=== PATIENT | female | born 1955 | race Hispanic/Latino ===

== ENCOUNTER 2016-09-19 11:45 | Day surgery (SDC) | payer OTHER ==
[2016-09-12 12:34] VITALS: BMI 25.8
[2016-09-19] MEDS ORDERED: Lactated Ringer's 1,000 ML IV ONE ×2 (13:21)
[2016-09-19] MEDS ORDERED: Propofol 10 mg/ml Inj (20 ML) ONE ×2 (14:15→14:24)
[2016-09-19] MEDS: ceFAZolin IV 1 gm in Dextrose 1 GM/50 ML BAG IVPB ONE ×2 (14:15→14:34)
[2016-09-19] MEDS ORDERED: Midazolam 2 MG/2 ML VIAL ONE (14:15)
[2016-09-19] MEDS: Lidocaine 1% Inj (20ml) ONE ×2 (14:30→14:33)
[2016-09-19] MEDS: Bupivacaine HCl 0.25% PF (10 ml) Inj ONE ×2 (14:30→14:33)
[2016-09-19] MEDS ORDERED: Bacitracin Ointment 30 GM TUBE ONE (14:54)
[2016-09-19] MEDS ORDERED: HYDROmorphone 0.5 mg/0.5 ml ISec IVP PRN (15:12)
[2016-09-19] MEDS ORDERED: Oxycodone/Acetaminophen 5/325 mg Tab PO PRN (15:26)
--- NOTE | 2016-09-19 15:33 | OP ---
PROCEDURE DATE: 09/19/2016 PREOPERATIVE DIAGNOSIS: Mass of the right elbow. POSTOPERATIVE DIAGNOSIS: Mass of the right elbow. PROCEDURE PERFORMED: Wide and deep radical resection mass of the right elbow with adjacent tissue tr ansfer closure. SURGEON: Dino Leonardo MD ANESTHESIA: Local sedation. ESTIMATED BLOOD LOSS: 30 mL. POSTOPERATIVE CONDITION: Stable. INDICATIONS FOR SURGERY: This is a 61-year-old female with a painful enlarging mass of her right elb ow who will now undergo a wide and deep excision. It measured approximately 5 x 3 cm in size. PROCEDURE: The patient taken to the operating room, placed in the prone position. IV sedation was a dministered and the right arm, elbow and forearm were prepped and draped. A generous elliptical inci elmo was made surrounding the mass. It was dissected free down into the joint capsule and cavity and completely dissected free and removed. There was a fair amount of bleeding that was controlled with the Bovie. The wound was irrigated with copious amounts of saline solution. A greater than 30 squa re cm adjacent tissue transfer closure was performed by widely mobilizing an underlying tissue and us ing multiple layers of heavy Monocryl, subcuticular Monocryl, and skin clips. The patient tolerated the procedure well, returned to recovery room in stable condition. Dino Leonardo MD cc: [id number] TT: 09/19/2016 15:32:30 sn
[2016-09-19 16:54] VITALS: RESP 16
[2016-09-19 16:58] VITALS: TEMP 97.5
[2016-09-19 17:02] VITALS: O2SAT 98
[2016-09-19 17:03] VITALS: BP 129/78; PULSE 69
== END 2016-09-19 17:10 | disposition home or self-care (01) ==
LOC: C.SDS 11:45
PROVIDERS: ATTEND Surgery
DX: M67.421 Ganglion, right elbow (principal); R22.31 Localized swelling, mass and lump, right upper limb; M65.821 Other synovitis and tenosynovitis, right upper arm
CPT/HCPCS: 24077; 88307; J0690; J2250; J2704; J3010; J7120

== ENCOUNTER 2016-09-23 19:51 | Inpatient (IN) | payer MEDICAID, OTHER ==
[2016-09-23 19:52] VITALS: BMI 25.8
--- NOTE | 2016-09-23 20:15 | C.PDOC ---
History Of Present Illness Patient presents to the ED seeking detox. Patient notes taking Xanax 6 mg daily with the last dose taken just prior to arrival at 7pm. Patient denies suicidal or homicidal ideations. Time Seen by Provider: 09/23/16 20:15 Chief Complaint (Nursing): Substance Abuse History Per: Patient History/Exam Limitations: no limitations Current Symptoms Are (Timing): Still Present Suicide/Self Injury Attempted (Context): None Modifying Factor(s): None Severity: None Pain Scale Rating Of: 0 Associated Symptoms: Anxiety. denies: Suicidal Thoughts, Suicidal Plan Involuntary Hold By: None Recent travel outside of the [place]: No Additional History Per: Family Past Medical History Reviewed: Historical Data, Nursing Documentation, Vital Signs Vital Signs: Last Vital Signs Temp 97.9 F 09/23/16 19:53 Pulse 89 09/23/16 19:53 Resp 20 09/23/16 19:53 BP 121/78 09/23/16 19:53 Pulse Ox 100 09/23/16 20:39 - Medical History PMH: Anxiety, Asthma, HTN Family History: States: Unknown Family Hx - Social History Hx Alcohol Use: No Hx Substance Use: Yes - Immunization History Hx Tetanus Toxoid Vaccination: No Hx Influenza Vaccination: Yes Hx Pneumococcal Vaccination: No Review Of Systems Constitutional: Negative for: Fever, Chills, Sweats Cardiovascular: Negative for: Chest Pain, Palpitations Respiratory: Negative for: Cough, Shortness of Breath Gastrointestinal: Negative for: Nausea, Vomiting, Abdominal Pain, Diarrhea Psych: Positive for: Anxiety. Negative for: Suicidal ideation Physical Exam - Physical Exam Appears: Non-toxic, No Acute Distress Skin: Warm, Dry Head: Atraumatic Eye(s): bilateral: Normal Inspection Oral Mucosa: Moist Neck: Supple Chest: Symmetrical, No Deformity Cardiovascular: Rhythm Regular Respiratory: No Rales, No Rhonchi, No Stridor, No Wheezing Gastrointestinal/Abdominal: Soft, No Tenderness, No Distention, No Guarding, No Rebound Back: Normal Inspection Extremity: Normal ROM, No Tenderness Extremity: Bilateral: Atraumatic Neurological/Psych: Oriented x3, Normal Speech, Normal Cognition Gait: Steady ED Course And Treatment - Laboratory Results Result Diagrams: 09/23/16 04:52 09/23/16 04:52 O2 Sat by Pulse Oximetry: 100 Pulse Ox Interpretation: Normal Disposition Discussed With : Domingo Herzog (') Comment: accepted the pt on his service and took over the care at 10PM Doctor Will See Patient In The: Hospital Counseled Patient/Family Regarding: Studies Performed, Diagnosis - Disposition Disposition: HOSPITALIZED Disposition Time: 20:15 Condition: FAIR - POA Present On Arrival: None - Clinical Impression Clinical Impression: Drug dependence, Benzodiazepine abuse - Scribe Statement The provider has reviewed the documentation as recorded by the Scribe Provider Attestation: Heather Mark All medical record entries made by the Scribe were at my direction and personally dictated by me. I have reviewed the chart and agree that the record accurately reflects my personal performance of the history, physical exam, medical decision making, and the department course for this patient. I have also personally directed, reviewed, and agree with the discharge instructions and disposition. Decision To Admit - Pt Status Changed To: Hospital Disposition Of: Inpatient - Admit Certification Admit to Inpatient:: After my assessment, the patient will require hospitalization for at least two midnights. This is because of the severity of symptoms shown, intensity of services needed, and/or the medical risk in this patient being treated as an outpatient. - InPatient: Physician Admission Certification: I certify that this patient requires 2 or more midnights of care for the following reason:: After my assessment, the patient will require hospitalization for at least two midnights. This is because of the severity of symptoms shown, intensity of services needed, and/or the medical risk in this patient being treated as an outpatient. - . Bed Request Type: Detox Admitting Physician: Domingo Herzog Patient Diagnosis: Drug dependence, Benzodiazepine abuse
[2016-09-23 20:32] LABS: BASO # 0.1 K/uL (0.0-0.2); BASO % 0.7 % (0.0-2.0); EOS # 0.5 K/uL (0.0-0.7); EOS % 4.1 % (0.0-4.0); LYMPH # 3.1 K/uL (1.0-4.3); LYMPH % 27.1 % (20.0-40.0); MEAN CELL VOLUME 94.1 fL (81.0-99.0); MEAN PLATELET VOLUME 7.3 fL (7.2-11.7); MONO # 1.2 K/uL (0.0-0.8); MONO % 10.5 % (0.0-10.0); RED CELL DISTRIBUTION WIDTH 13.8 % (11.5-14.5); WHITE BLOOD COUNT 11.4 K/uL (4.8-10.8)
[2016-09-23 20:45] LABS: RBC URINE 2 /hpf (0-3); URINE BILIRUBIN NEGATIVE (NEGATIVE); URINE BLOOD 1+ (NEGATIVE); URINE COLOR Yellow (YELLOW); URINE GLUCOSE (UA) NORMAL (Normal); URINE KETONE NEGATIVE (NEGATIVE); URINE LEUKOCYTE ESTERASE NEG Leu/uL (Negative); URINE PROTEIN NEGATIVE (NEGATIVE); URINE UROBILINOGEN NORMAL mg/dL (0.2-1.0); WBC URINE 8 /hpf (0-5)
[2016-09-23 21:16] LABS: CHLORIDE 97 mmol/L (98-107); POTASSIUM 3.9 mmol/L (3.6-5.2); SODIUM 136 mmol/L (132-148)
[2016-09-23 21:18] LABS: ALB/GLOB RATIO 1.4 (1.0-2.1); AST/SGOT 22 U/L (14-36); BILIRUBIN,TOTAL 0.6 mg/dL (0.2-1.3); CARBON DIOXIDE 27 mmol/L (22-30); GFR AFRICAN-AMERICAN > 60; TOTAL PROTEIN 7.7 g/dL (6.3-8.3)
[2016-09-23 21:19] LABS: ALCOHOL SERUM < 10 mg/dl (0-10); ALKALINE PHOSPHATASE 76 U/L (38-126); ALT/SGPT 20 U/L (9-52); BLOOD UREA NITROGEN 12 mg/dL (7-17); CALCIUM 8.4 mg/dl (8.6-10.4); GLUCOSE,RANDOM 83 mg/dL (65-105)
[2016-09-24] MEDS ORDERED: Influenza Virus Vaccine 45 mcg/0.5 ml Syr IM ONE (02:09)
--- NOTE | 2016-09-24 14:44 | PCM.PSYCH ---
Initial Psychiatric Evaluation - Initial Psychiatric Evaluation Type of Admission: Voluntary Legal Status: Capacity Chief Complaint (in patient's own words): I need treatment for my benzoes addiction History of Present Illness and Precipitating Events: Patient is a 61 years old, single, unemployed, on SSI, female with no previous psychiatric history was admitted to detox for the treatment of withdrawing from anxiolytics. Reported using Xanax which is her drug of choice. Reported started using Xanax about 8 years ago, was using 2-3 sticks of Xanax daily. Last use reported yesterday around 6 PM. Longest period of abstinence about 2 years 2009 to 2010. Reported history of one previous detox but no rehabs. Cannabis: Started at the age of 17 years, increased gradually, was using cannabis every day hold a. Last use reported 2 days ago. Opiates: Patient has history of using Vicodin in the past and for last 6 months reported using hydrocodone, half to 1 tablet daily. Last use reported yesterday. Denied use of alcohol or cocaine. Patient was born in [place], has 12th grade of education. Not working since 2001, on [employer]. Patient never and has no children, lives with her next of kin. Her height is 5 feet 7-1/2 inch and weight is 168 pounds. Patient smokes one and a half pack of cigarettes daily, requesting nicotine patch. Current Medications: Active Medications Generic Name Dose Route Start Last Admin Trade Name Freq PRN Reason Stop Dose Admin Amlodipine Besylate 10 mg 09/24/16 10:00 09/24/16 12:11 Norvasc PO 10 mg DAILY DRAE Administration Clonidine HCl 0.1 mg 09/24/16 09:48 Catapres PO Q8 PRN COWS Score More or Equal to 5 Gabapentin 300 mg 09/24/16 10:00 09/24/16 10:11 Neurontin PO 300 mg BID DREA Administration Hydroxyzine HCl 25 mg 09/24/16 09:47 Atarax PO Q6 PRN Anxiety Loperamide HCl 2 mg 09/24/16 09:48 Imodium PO Q8 PRN Diarrhea Lorazepam 1 mg 09/24/16 10:16 Ativan PO Q6 PRN Anxiety Metoprolol Tartrate 100 mg 09/24/16 10:00 09/24/16 12:10 Lopressor PO 100 mg BID DREA Administration Nicotine 1 patch 09/24/16 10:00 09/24/16 10:11 Nicoderm Cq TD 1 patch DAILY DREA Administration Ondansetron HCl 4 mg 09/24/16 09:48 Zofran Tab PO Q8 PRN Nausea/Vomiting Past Psychiatric History - Past Psychiatric History Previous Treatment History: Inpatient Prior Professional Help: Inpatient detox At [facility]: [facility] History of Abuse: None reported History of ETOH/Drug Use: See HPI History of Family Illness: Reported his brother has history of cannabis use Pertinent Medical Hx (Current Medical&Sleep Prob, Allergies): Allergies Allergy/AdvReac Type Severity Reaction Status Date / Time hormone theraphy Allergy Uncoded 09/23/16 20:02 steroids Allergy Uncoded 09/23/16 20:02 Fluticasone Propionate [Flonase Allergy Relief] 15.8 ml NS PRN PRN 06/30/16 Nortriptyline HCl 10 mg PO HS 06/30/16 Albuterol/Ipratropium [Combivent Respimat] 1 puff IH Q6H PRN #0 inhaler Metoprolol Tartrate [Lopressor] 100 mg PO BID tab 07/05/16 amLODIPine [Norvasc] 10 mg PO DAILY tab 07/05/16 Alprazolam [Xanax] 0.5 mg PO Q6 PRN 09/12/16 Black Cohosh 40 mg PO DAILY 09/12/16 Gabapentin [Neurontin] 300 mg PO DAILY 09/12/16 Melatonin 10 mg PO HS 09/12/16 Zolpidem [Ambien] 10 mg PO HS PRN 09/12/16 Ibuprofen [Motrin Tab] 600 mg PO BID 09/23/16 Loratadine [Claritin] 10 mg PO DAILY 09/23/16 traZODone [Desyrel] 100 mg PO HS 09/23/16 Hypertension Asthma Review of Systems - Psychiatric Psychiatric: Other Mental Status Examination - Personal Presentation Personal Presentation: Looks stated age - Affect Affect: Other - Motor Activity Motor Activity: Calm - Reliability in Providing Information Reliability in Providing Information: Fair - Speech Speech: Organized - Mood Mood: Anxious - Formal Thought Process Formal Thought Process: No Impairment - Hallucinations/Delusions Hallucinations: Other (None reported) Delusions: Other - Obsessions/Compulsions Obsessions: None Compulsions: None - Cognitive Functions Orientation: Person, Place, Situation, Time Sensorium: Alert Attention/Concentration: Attentive Abstract Thinking: [place] Estimate of Intelligence: Average Judgement: Intact, as evidence by: Insight regarding need for hospitalization Memory: Recent intact, as evidence by: 3/3 object recall, Remote intact, as evidenced by: Ability to recall historical events - Risk Risk: Withdrawal, Diminished functioning - Strength & Assets Inventory Strength & Assets Inventory: Cooperative - Limitations Limitations: Other DSM 5 DX - DSM 5 DSM 5 Diagnosis: Anxiolytics use disorder severe Cannabis use disorder Opiate use disorder - Recommended/Plan of Treatment Treatment Recommendations and Plan of Treatment: Patient education Supportive therapy Ativan 1 mg every 6 when necessary. Patient has no withdrawal symptoms from Xanax or opiates. Gabapentin 300 mg twice a day Other when necessary medications Nicotine patch Projected ELOS: 4-5 days - Smoking Cessation Smoking Cessation Initiated: Yes
[2016-09-25 06:13] VITALS: RESP 18
[2016-09-25] MEDS: Multiple Vitamins Tab PO SCH (10:57)
--- NOTE | 2016-09-25 14:22 | PCM.PYCHPN ---
Psychiatric Progress Note - Psychiatric Progress Note Patient seen today, length of contact: 18 min Patient Chief Complaint: "I'm withdrawing" Problems Identified/Issues Discussed: The pt is seen, chart reviewed, case discussed with staff. The pt is compliant with medications and reports no side-effects. Pt still complaining of withdrawals with sweats, chills, goosebumps, pyrexia, and stomach cramps. Pt states she does not have an appetite and could not sleep restfully. Symptoms are improving but needs more time to stabilize. Pt had right elbow surgery on Sunday and is to follow up with Dr. Leonardo tomorrow, 09/26. Dr. Leonardo will be contacted for follow up. After care discussed, support and psychoeducation given. Medication Change: Yes (detox changes daily) Medical Record Reviewed: Yes Mental Status Examination - Cognitive Function Orientation: Person, Place, Situation, Time Memory: Impaired Attention: WNL Concentration: WNL Association: WNL Fund of Knowledge: WNL - Mood Mood: Anxious - Affect Affect: Constricted - Speech Speech: Appropriate - Formal Thought Process Formal Thought Process: No Impairment - Suicidal Ideation Suicidal Ideation: No - Homicidal Ideation Homicidal Ideation: No Goal/Treatment Plan - Goal/Treatment Plan Need for Continued Stay: Discharge may exacerbated symptoms, Severe functional impairment Progress Toward Problem(s) and Goals/Treatment Plan: Patient education Supportive therapy Librium 25 mg PO Q4 PRN Librium 25 mg PO Q6 DREA Gabapentin 300 mg twice a day Gabapentin 400 mg PO HS DREA Trazodone 50 mg PO HS PRN Other when necessary medications Nicotine patch No need for methadone or suboxone for now as her COWS is low but benzo wdw sxs are present and risk of seizures. Estimated Date of D/C: 09/28/16 - Smoking Cessation Smoking Cessation Initiated: Yes
[2016-09-26] MEDS: Multiple Vitamins Tab PO SCH (09:06)
--- NOTE | 2016-09-26 14:31 | PCM.PYCHPN ---
Psychiatric Progress Note - Psychiatric Progress Note Patient seen today, length of contact: 16 min Patient Chief Complaint: "I'm still not well" Problems Identified/Issues Discussed: The pt is seen, chart reviewed, case discussed with staff. She is improving but still very somatic and anxious Support given, sx mgt discussed MD used After care discussed Medication Change: Yes (detox changes daily) Medical Record Reviewed: Yes Mental Status Examination - Cognitive Function Orientation: Person, Place, Situation, Time Memory: Impaired Attention: WNL Concentration: WNL Association: WNL Fund of Knowledge: WNL - Mood Mood: Anxious - Affect Affect: Constricted - Speech Speech: Appropriate - Formal Thought Process Formal Thought Process: No Impairment - Suicidal Ideation Suicidal Ideation: No - Homicidal Ideation Homicidal Ideation: No Goal/Treatment Plan - Goal/Treatment Plan Need for Continued Stay: Discharge may exacerbated symptoms, Severe functional impairment Progress Toward Problem(s) and Goals/Treatment Plan: Patient education Supportive therapy Librium 25 mg PO Q4 PRN Librium 25 mg PO Q6 DREA Gabapentin 300 mg twice a day Gabapentin 400 mg PO HS DREA Trazodone 50 mg PO HS PRN Other when necessary medications Nicotine patch No need for methadone or suboxone for now as her COWS is low but benzo wdw sxs are present and risk of seizures. Estimated Date of D/C: 09/28/16
[2016-09-27] MEDS: Multiple Vitamins Tab PO SCH (09:00)
--- NOTE | 2016-09-27 12:07 | PCM.PYCHPN ---
Psychiatric Progress Note - Psychiatric Progress Note Patient seen today, length of contact: 16 min Patient Chief Complaint: "I'm feeling less anxious" Problems Identified/Issues Discussed: The pt is seen, chart reviewed, case discussed with staff. She is improving and reports less anxiety. Support given, sx mgt discussed OK used After care discussed - pt plans to go to [facility] Medication Change: Yes (detox changes daily) Medical Record Reviewed: Yes Mental Status Examination - Cognitive Function Orientation: Person, Place, Situation, Time Memory: Impaired Attention: WNL Concentration: WNL Association: WNL Fund of Knowledge: WNL - Mood Mood: Anxious - Affect Affect: Constricted - Speech Speech: Appropriate - Formal Thought Process Formal Thought Process: No Impairment - Suicidal Ideation Suicidal Ideation: No - Homicidal Ideation Homicidal Ideation: No Goal/Treatment Plan - Goal/Treatment Plan Need for Continued Stay: Discharge may exacerbated symptoms, Severe functional impairment Progress Toward Problem(s) and Goals/Treatment Plan: Patient education Supportive therapy Librium 25 mg PO Q4 PRN Librium 25 mg detox Gabapentin 300 mg twice a day Gabapentin 400 mg PO HS DREA Trazodone 100 mg PO HS PRN Other when necessary medications Nicotine patch No need for methadone or suboxone for now as her COWS is low but benzo wdw sxs are present and risk of seizures. Estimated Date of D/C: 09/28/16 (outpatient [facility])
[2016-09-27] MEDS: Albuterol-Ipratrop 20 mcg/actuation (4 g) INH PRN (14:45)
--- NOTE | 2016-09-28 08:45 | PCM.PYCHDC ---
Mental Status Examination - Mental Status Examination Orientation: Person, Place, Situation, Time Memory: Impaired Mood: Anxious Affect: Constricted Speech: Appropriate Attention: WNL Concentration: Poor Association: WNL Fund of Knowledge: WNL Formal Thought Process: No Impairment Suicidal Ideation: No Current Homicidal Ideation?: No Discharge Summary - Discharge Note Reason for Hospitalization: Benzo detox Consultations:: List each consultation separately and include: 1. Reason for request. 2. Findings. 3. Follow-up Consultations: None Summary of Hospital Course include:: 1. Description of specific treatment plan utilized for patients during their course of treatmen. 2. Summarize the time- course for resolution of acute symptoms and/or regressed behaviors. 3. Describe issues identified and worked on during hospitalization. 4. Describe medication utilized. 5. Describe medical problems identified and treated. 6. Reassessment of suicide risk Summary of Hospital Course: The pt was admitted and started on treatment with psychotherapy, support, psychoeducation and medications. LA and CBT used. The pt attended groups and activities, as well as milieu therapy. All the risks and benefits of medications are discussed and the patient understood and agreed. After care discussed with the patient. She barbara go to [facility] She was anxious and somewhat somatically preoccupied. 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 Stay away from stress, alcohol and drugs. See primary doctor once a year. - Smoking Cessation Smoking Cessation Medication prescribed: No - Antipsychotic Medications Pt discharged on 2 or more routine antipsychotic medications: No
[2016-09-28] MEDS: Albuterol-Ipratrop 20 mcg/actuation (4 g) INH PRN (09:45)
[2016-09-28] MEDS: Multiple Vitamins Tab PO SCH (09:46)
[2016-09-28 10:57] VITALS: BP 112/83; PULSE 95; TEMP 98.1; O2SAT 94
== END 2016-09-28 11:10 | disposition home or self-care (01) | DRG 745 ==
LOC: C.ER 19:51 → C.9E 22:07 → C.7D 22:24
PROC: HZ2ZZZZ Detoxification Services for Substance Abuse Treatment (ICD-10-PCS; principal; 2016-09-23)
PROC: HZ59ZZZ Individual Psychotherapy for Substance Abuse Treatment, Supportive (ICD-10-PCS; 2016-09-23)
PROC: HZ90ZZZ Pharmacotherapy for Substance Abuse Treatment, Nicotine Replacement (ICD-10-PCS; 2016-09-23)
DX: F13.230 Sedative, hypnotic or anxiolytic dependence with withdrawal, uncomplicated (principal); F11.90 Opioid use, unspecified, uncomplicated; F12.20 Cannabis dependence, uncomplicated; F17.210 Nicotine dependence, cigarettes, uncomplicated; I10 Essential (primary) hypertension; J45.909 Unspecified asthma, uncomplicated; F41.9 Anxiety disorder, unspecified

== ENCOUNTER 2016-12-11 18:02 | Inpatient (IN) | payer MEDICAID, OTHER ==
[2016-12-11 18:02] VITALS: BMI 25.8
--- NOTE | 2016-12-11 19:44 | C.PDOC ---
History Of Present Illness A 61 year old female, whose past medical history includes Anxiety, Asthma, and HTN, presents to emergency department for medical clearance. The patient was medically pre-screened and denies any physical complaints such as fever and chest pain. Time Seen by Provider: 12/11/16 19:21 Chief Complaint (Nursing): Medical Clearance History Per: Patient History/Exam Limitations: no limitations Onset/Duration Of Symptoms: Other Severity: None Past Medical History Vital Signs: Last Vital Signs Temp 98.6 F 12/11/16 22:50 Pulse 76 12/11/16 22:50 Resp 18 12/11/16 22:50 BP 110/69 12/11/16 22:50 Pulse Ox 98 12/11/16 22:50 - Medical History PMH: Anxiety, Asthma, HTN Denies: Diabetes, Hepatitis, Chronic Kidney Disease Surgical History: Tonsillectomy - [facility] Procedures DETOXIFICATION SERVICES FOR SUBSTANCE ABUSE TREATMENT (09/23/16) INDIV PSYCHOTHERAPY FOR SUBSTANCE ABUSE TREATMENT, SUPPORT (09/23/16) PHARMACOTHERAPY FOR SUBSTANCE ABUSE, NICOTINE REPLACE (09/23/16) Family History: States: Unknown Family Hx - Social History Hx Alcohol Use: No Hx Substance Use: Yes - Immunization History Hx Tetanus Toxoid Vaccination: No Hx Influenza Vaccination: Yes Hx Pneumococcal Vaccination: No Review Of Systems Except As Marked, All Systems Reviewed And Found Negative. Constitutional: Negative for: Fever Cardiovascular: Negative for: Chest Pain Physical Exam - Physical Exam Additional Physical Exam Comments: Constitutional: No acute distress. Head: Normocephalic. Atraumatic. Eyes: PERRL. EOMI. ENT: Moist mucous membranes. Neck: Supple. Cardiovascular: Regular rate. Radial pulses 2+ bilaterally. Chest: No tenderness. Respiratory: Clear to auscultation bilaterally. GI: Soft. Nontender. Nondistended. Back: No CVA tenderness. Musculoskeletal: No tenderness or swelling of extremities. Skin: No rash. Neurologic: Alert, no focal deficit. ED Course And Treatment - Laboratory Results Result Diagrams: 12/11/16 19:52 12/11/16 19:52 O2 Sat by Pulse Oximetry: 100 Medical Decision Making Medical Decision Making: Treatment Plan: -- Labs: Alcohol serum, comp metabolic, drug screen -- Urinalysis Disposition - Disposition Disposition: HOSPITALIZED Disposition Time: 21:00 Condition: GOOD - Clinical Impression Clinical Impression: Benzodiazepine abuse - Scribe Statement The provider has reviewed the documentation as recorded by the Scribe Kristy Dorman All medical record entries made by the Scribe were at my direction and personally dictated by me. I have reviewed the chart and agree that the record accurately reflects my personal performance of the history, physical exam, medical decision making, and the department course for this patient. I have also personally directed, reviewed, and agree with the discharge instructions and disposition.
[2016-12-11 19:55] LABS: BASO # 0.1 K/uL (0.0-0.2); BASO % 0.8 % (0.0-2.0); EOS # 0.3 K/uL (0.0-0.7); EOS % 3.2 % (0.0-4.0); HEMATOCRIT 43.3 % (34.0-47.0); LYMPH # 2.7 K/uL (1.0-4.3); LYMPH % 25.2 % (20.0-40.0); MEAN CELL VOLUME 94.9 fL (81.0-99.0); MEAN CORPUSCULAR HEMOGLOBIN 31.9 pg (27.0-31.0); MEAN CORPUSCULAR HGB CONC 33.6 g/dL (33.0-37.0); MEAN PLATELET VOLUME 7.9 fL (7.2-11.7); MONO % 9.1 % (0.0-10.0); RED CELL DISTRIBUTION WIDTH 13.3 % (11.5-14.5); WHITE BLOOD COUNT 10.7 K/uL (4.8-10.8)
[2016-12-11 20:05] LABS: CHLORIDE 101 mmol/L (98-107); POTASSIUM 3.9 mmol/L (3.6-5.2); SODIUM 139 mmol/L (132-148)
[2016-12-11 20:07] LABS: AST/SGOT 26 U/L (14-36); BILIRUBIN,TOTAL 0.7 mg/dL (0.2-1.3); CARBON DIOXIDE 26 mmol/L (22-30); GFR AFRICAN-AMERICAN > 60
[2016-12-11 20:08] LABS: ALB/GLOB RATIO 1.2 (1.0-2.1); ALKALINE PHOSPHATASE 73 U/L (38-126); ALT/SGPT 30 U/L (9-52); BLOOD UREA NITROGEN 7 mg/dL (7-17); CALCIUM 9.4 mg/dl (8.6-10.4); GLUCOSE,RANDOM 83 mg/dL (65-105); TOTAL PROTEIN 7.8 g/dL (6.3-8.3)
[2016-12-11 20:09] LABS: ALCOHOL SERUM < 10 mg/dl (0-10)
[2016-12-11 20:44] LABS: RBC URINE 2 /hpf (0-3); URINE BILIRUBIN NEGATIVE (NEGATIVE); URINE BLOOD 1+ (NEGATIVE); URINE COLOR Yellow (YELLOW); URINE GLUCOSE (UA) NORMAL (Normal); URINE KETONE NEGATIVE (NEGATIVE); URINE LEUKOCYTE ESTERASE NEG Leu/uL (Negative); URINE PROTEIN NEGATIVE (NEGATIVE); URINE UROBILINOGEN NORMAL mg/dL (0.2-1.0); WBC URINE < 1 /hpf (0-5)
--- NOTE | 2016-12-11 22:19 | PCM.BM ---
<Smitha Zavala - Last Filed: 12/11/16 22:18> Treatment Plan Problems - Problems identified on initial assessmt Potential for benzo withdrawal Date Initiated: 12/11/16 Time Initiated: 22:19 Assessment reference: NA Status: Active Priority: 1 Treatment assets and liabiliti Patient Assests: ADL independent, negotiates basic needs, cognitively intact Patient Liabilities: substance abuse - Milieu Protocol Maintain good personal hygiene: daily Encourage regular showers, daily Remind patient to perform daily oral care Conduct patient checks and document Observation sheet: Q15 minutes Maintain personal safety: every shift Educate patient to report safety concerns to staff, every shift Monitor environment for contraband/sharps Medication safety: Monitor for expected outcome, potential side effects: every shift, Assess barriers to learning: every shift, Assess readiness for medication education: every shift <Domingo Herzog - Last Filed: 12/12/16 14:08> - Diagnosis (1) Sedative, hypnotic or anxiolytic use disorder, severe, dependence Status: Acute Interventions: 12/12/16 14:13 Ativan taper (2) Cannabis use disorder, mild, abuse Status: Acute Interventions: 12/12/16 14:13 Psychotherapy (3) Opiate use Status: Acute Interventions: 12/12/16 14:13 Clonidine <Ambar Ellis - Last Filed: 12/13/16 09:04> Family Contact Family involvement: Family/SO is involved Family contact: Patient agrees to contact - Goals for Treatment Patient goals for treatment: Transition from detox to aftercare--undetermined at this point. Discharge/Continuing Care - Education Needs Education Needs: Patient Medication, Patient Diagnosis/Disease Process, Patient Coping Skills, Patient Anger Management skills, Patient Placement options, Patient Community resources - Discharge Discharge Criteria: Free of agitation, Normal sleep pattern, No longer exhibiting s/s of withdrawal, Reduction of target symptoms Discharge to:: Other - Additional Comments 12/13/16 08:59 undetermined at this point
[2016-12-11] MEDS ORDERED: Aluminum Hydroxide/Magnesium Hydroxide Susp (30 mL) PO PRN (23:36)
[2016-12-12 10:12] VITALS: RESP 18
[2016-12-12] MEDS: Multiple Vitamins Tab PO SCH (11:33)
--- NOTE | 2016-12-12 14:02 | PCM.PSYCH ---
Initial Psychiatric Evaluation - Initial Psychiatric Evaluation Type of Admission: Voluntary Legal Status: Capacity Chief Complaint (in patient's own words): I need treatment for my substance use History of Present Illness and Precipitating Events: Patient is a 61 years old, single, unemployed, on SSI, female with no previous psychiatric history was admitted to detox for the treatment of withdrawing from anxiolytics. Reported using Xanax which is her drug of choice. Reported started using Xanax about 8 years ago, was using 2-3 sticks of Xanax daily. Last use reported yesterday. Longest period of abstinence about 2 years 2009 to 2010. Reported history of 2 previous detox but no rehabs. Cannabis: Started at the age of 17 years, increased gradually, was using cannabis every day. Last use reported 2 days ago. Opiates: Patient has history of using Vicodin in the past and for last 9 months reported using hydrocodone, half to 1 tablet daily. Last use reported yesterday. Denied use of alcohol or cocaine. Patient was born in [place], has 12th grade of education. Not working since 2001, on [employer]. Patient never and has no children, lives with her next of kin. Her height is 5 feet 7-1/2 inch and weight is 168 pounds. Patient smokes one and a half pack of cigarettes daily, requesting nicotine patch. Current Medications: Active Medications Generic Name Dose Route Start Last Admin Trade Name Freq PRN Reason Stop Dose Admin Acetaminophen 650 mg 12/11/16 23:36 Tylenol 325mg Tab PO Q4H PRN Fever greater than 101 F Al Hydrox/Mg Hydrox/Simethicone 30 ml 12/11/16 23:36 Maalox 30 Ml PO TID PRN Indigestion / Heartburn Albuterol/Ipratropium 1 puff 12/12/16 13:58 Combivent Respimat INH Q6 PRN Shortness of Breath Amlodipine Besylate 10 mg 12/12/16 11:30 12/12/16 12:03 Norvasc PO 10 mg DAILY DREA Administration Clonidine HCl 0.1 mg 12/11/16 23:36 Catapres PO Q8 PRN COWS Score More or Equal to 5 Gabapentin 300 mg 12/12/16 18:00 Neurontin PO BID DREA Loperamide HCl 2 mg 12/11/16 23:36 Imodium PO Q8 PRN Diarrhea Lorazepam 1 mg 12/11/16 23:38 Ativan PO Q6 PRN Symptoms of alcohol withdrawl Lorazepam 1 mg 12/11/16 23:45 12/12/16 11:33 Ativan PO 12/15/16 23:44 1 mg Q6 DREA Administration Taper Metoprolol Tartrate 100 mg 12/12/16 11:30 12/12/16 12:03 Lopressor PO 100 mg BID DREA Administration Multivitamins 1 tab 12/12/16 10:00 12/12/16 11:33 Hexavitamin PO 1 tab DAILY DREA Administration Nicotine 1 patch 12/12/16 11:15 12/12/16 11:33 Nicoderm Cq TD 1 patch DAILY DREA Administration Ondansetron HCl 4 mg 12/11/16 23:36 Zofran Tab PO Q8 PRN Nausea/Vomiting Pneumococcal Polyvalent Vaccine 0.5 ml 12/15/16 10:00 Pneumovax 23 Vaccine IM 12/15/16 10:01 .ONCE ONE Trazodone HCl 50 mg 12/12/16 00:01 12/12/16 00:31 Desyrel PO 50 mg HS PRN Administration Insomnia Past Psychiatric History - Past Psychiatric History Previous Treatment History: Inpatient Prior Professional Help: 2 previous detox At [facility]: [facility] History of Abuse: None reported History of ETOH/Drug Use: See HPI History of Family Illness: Reported her reported that has history of cannabis use disorder Pertinent Medical Hx (Current Medical&Sleep Prob, Allergies): Allergies Allergy/AdvReac Type Severity Reaction Status Date / Time hormone theraphy Allergy Uncoded 12/11/16 18:59 steroids Allergy Uncoded 12/11/16 18:59 Albuterol/Ipratropium [Combivent Respimat] 1 puff IH Q6H PRN #0 inhaler Melatonin 10 mg PO HS 09/12/16 traZODone [Desyrel] 100 mg PO HS 09/23/16 Albuterol/Ipratropium [Combivent Respimat] 1 puff INH Q6H PRN inhaler 09/28/16 Gabapentin [Neurontin] 300 mg PO QID cap 09/28/16 Loratadine [Claritin] 10 mg PO DAILY tab 09/28/16 Metoprolol Tartrate [Lopressor] 100 mg PO BID tab 09/28/16 amLODIPine [Norvasc] 10 mg PO DAILY tab 09/28/16 Hypertension Asthma Review of Systems - Psychiatric Psychiatric: Anxiety Mental Status Examination - Personal Presentation Personal Presentation: Looks stated age - Affect Affect: Other (Appropriate) - Motor Activity Motor Activity: Calm - Reliability in Providing Information Reliability in Providing Information: Fair - Speech Speech: Organized - Mood Mood: Anxious - Formal Thought Process Formal Thought Process: No Impairment - Hallucinations/Delusions Hallucinations: Other (None reported) Delusions: Other - Obsessions/Compulsions Obsessions: None Compulsions: None - Cognitive Functions Orientation: Person, Place, Situation, Time Sensorium: Alert Attention/Concentration: Attentive Abstract Thinking: [place] Estimate of Intelligence: Average Judgement: Intact, as evidence by: Insight regarding need for hospitalization Memory: Recent intact, as evidence by: 3/3 object recall, Remote intact, as evidenced by: Ability to recall historical events - Risk Risk: Withdrawal, Diminished functioning - Strength & Assets Inventory Strength & Assets Inventory: Cooperative - Limitations Limitations: Other DSM 5 DX - DSM 5 DSM 5 Diagnosis: Anxiolytics use disorder severe Cannabis use disorder Opiate use disorder - Recommended/Plan of Treatment Treatment Recommendations and Plan of Treatment: Patient education Supportive therapy Ativan detox protocol for angiolytic withdrawal symptoms Clonidine for opiate withdrawal symptoms Other when necessary medications Projected ELOS: 4-5 days - Smoking Cessation Smoking Cessation Initiated: Yes
[2016-12-13] MEDS: Multiple Vitamins Tab PO SCH (10:52)
--- NOTE | 2016-12-13 17:18 | PCM.PYCHPN ---
Psychiatric Progress Note - Psychiatric Progress Note Patient seen today, length of contact: 15 minutes Patient Chief Complaint: I'm not feeling much better Problems Identified/Issues Discussed: Patient seen. Chart reviewed. Case discussed with the staff. Issues related to illness and treatment were discussed with the patient. Reported compliant with treatment with no adverse affects. Tolerating treatment very well. Patient reported not feeling well and is requesting for more medication. According to staff, patient was going to nursing station more frequently and asking different medications at different times. It appears that patient is a med seeking. At the time of evaluation, patient was awake alert oriented 3, had no delusions, no auditory or visual hallucinations, no suicidal ideations or homicidal ideations. Medical Problems: Hypertension Asthma Diagnostic Results: Reviewed DSM 5 Symptoms Update: Improving with treatment Medication Change: No Medical Record Reviewed: Yes Mental Status Examination - Cognitive Function Orientation: Person, Place, Situation, Time Memory: Intact Attention: WNL Concentration: WNL Association: WNL Fund of Knowledge: WNL Decription of patient's judgement and insights: Fair - Mood Mood: Anxious - Affect Affect: Other (Appropriate) - Speech Speech: Appropriate - Formal Thought Process Formal Thought Process: No Impairment Psychotic Thoughts and Behaviors: None - Suicidal Ideation Suicidal Ideation: No - Homicidal Ideation Homicidal Ideation: No Goal/Treatment Plan - Goal/Treatment Plan Need for Continued Stay: Remain at risks for inpatient hospitalization, Discharge may exacerbated symptoms, Severe functional impairment Progress Toward Problem(s) and Goals/Treatment Plan: Patient education Supportive therapy Continue treatment as before Estimated Date of D/C: 12/15/16 - Smoking Cessation Smoking Cessation Initiated: Yes
[2016-12-14] MEDS: Albuterol-Ipratrop 20 mcg/actuation (4 g) INH PRN ×2 (06:44→21:46)
[2016-12-14] MEDS: Multiple Vitamins Tab PO SCH (10:37)
--- NOTE | 2016-12-14 17:32 | PCM.PYCHPN ---
Psychiatric Progress Note - Psychiatric Progress Note Patient seen today, length of contact: 15 minutes Patient Chief Complaint: I'm not feeling much better Problems Identified/Issues Discussed: Patient seen. Chart reviewed. Case discussed with the staff. Issues related to illness and treatment were discussed with the patient. Reported compliant with treatment with no adverse affects. Tolerating treatment very well. Patient reported feeling much better with the treatment .At the time of evaluation, patient was awake alert oriented 3, had no delusions, no auditory or visual hallucinations, no suicidal ideations or homicidal ideations. Medical Problems: Hypertension Asthma Diagnostic Results: Reviewed DSM 5 Symptoms Update: Improving with treatment Medication Change: No Medical Record Reviewed: Yes Mental Status Examination - Cognitive Function Orientation: Person, Place, Situation, Time Memory: Intact Attention: WNL Concentration: WNL Association: WNL Fund of Knowledge: [facility] Decription of patient's judgement and insights: Fair - Mood Mood: Anxious (Much less than before) - Affect Affect: Other (Appropriate) - Speech Speech: Appropriate - Formal Thought Process Formal Thought Process: No Impairment Psychotic Thoughts and Behaviors: None - Suicidal Ideation Suicidal Ideation: No - Homicidal Ideation Homicidal Ideation: No Goal/Treatment Plan - Goal/Treatment Plan Need for Continued Stay: Remain at risks for inpatient hospitalization, Discharge may exacerbated symptoms, Severe functional impairment Progress Toward Problem(s) and Goals/Treatment Plan: Patient education Supportive therapy Continue treatment as before Estimated Date of D/C: 12/15/16 - Smoking Cessation Smoking Cessation Initiated: Yes
[2016-12-15] MEDS: Multiple Vitamins Tab PO SCH (09:23)
[2016-12-15 09:42] VITALS: BP 136/79; PULSE 99; TEMP 98.3; O2SAT 95
[2016-12-15] MEDS ORDERED: Pneumococcal 23-Valent Vaccine IM ONE (10:00)
--- NOTE | 2016-12-15 15:12 | PCM.PYCHDC ---
Mental Status Examination - Mental Status Examination Orientation: Person, Place, Situation, Time Memory: Intact Mood: Neutral Affect: Other (Appropriate) Speech: Appropriate Attention: WNL Concentration: WNL Association: WNL Fund of Knowledge: WNL Formal Thought Process: No Impairment Description of patient's judgement and insight: Fair Psychotic Thoughts and Behaviors: None Suicidal Ideation: No Current Homicidal Ideation?: No Discharge Summary - Discharge Note Reason for Hospitalization: Anxiolytics use disorder severe Cannabis use disorder Cocaine use disorder Laboratory Data: Review Consultations:: List each consultation separately and include: 1. Reason for request. 2. Findings. 3. Follow-up Summary of Hospital Course include:: 1. Description of specific treatment plan utilized for patients during their course of treatmen. 2. Summarize the time- course for resolution of acute symptoms and/or regressed behaviors. 3. Describe issues identified and worked on during hospitalization. 4. Describe medication utilized. 5. Describe medical problems identified and treated. 6. Reassessment of suicide risk Summary of Hospital Course: Patient is a 61 years old, single, unemployed, on SSI, female with no previous psychiatric history was admitted to detox for the treatment of withdrawing from anxiolytics. Reported using Xanax which is her drug of choice. Reported started using Xanax about 8 years ago, was using 2-3 sticks of Xanax daily. Last use reported yesterday. Longest period of abstinence about 2 years 2009 to 2010. Reported history of 2 previous detox but no rehabs. Cannabis: Started at the age of 17 years, increased gradually, was using cannabis every day. Last use reported 2 days ago. Opiates: Patient has history of using Vicodin in the past and for last 9 months reported using hydrocodone, half to 1 tablet daily. Last use reported yesterday. Denied use of alcohol or cocaine. Patient was born in [place], has 12th grade of education. Not working since 2001, on [email or web address]. Patient never and has no children, lives with her next of kin. Her height is 5 feet 7-1/2 inch and weight is 168 pounds. Patient smokes one and a half pack of cigarettes daily, requesting nicotine patch. During her stay in the hospital patient was treated with Ativan detox protocol. Also started on other medications. Patient was also getting Coumadin. We'll treatment patient started feeling better with no withdrawal symptoms. Patient tolerated treatment very well without any adverse affects. Today patient started feeling better and ready for discharge. At the time of evaluation and discharge patient was awake alert oriented 3, had no delusions, no auditory or visual hallucinations, no suicidal ideations or homicidal ideations. Patient was discharged in a stable condition. - Diagnosis (1) Sedative, hypnotic or anxiolytic use disorder, severe, dependence Status: Acute (2) Cannabis use disorder, mild, abuse Status: Acute (3) Opiate use Status: Acute - Final Diagnosis (DSM 5) Condition upon Discharge: GOOD Disposition: HOME/ ROUTINE - Smoking Cessation Smoking Cessation Medication prescribed: Yes - Antipsychotic Medications Pt discharged on 2 or more routine antipsychotic medications: No
== END 2016-12-15 10:15 | disposition home or self-care (01) | DRG 745 ==
LOC: C.ER 18:02 → C.7D 21:57
PROVIDERS: ADMIT Psychiatry & Neurology Psychiatry; ATTEND Psychiatry & Neurology Psychiatry
PROC: GZ56ZZZ Individual Psychotherapy, Supportive (ICD-10-PCS; principal; 2016-12-11)
DX: F13.20 Sedative, hypnotic or anxiolytic dependence, uncomplicated (principal); F11.90 Opioid use, unspecified, uncomplicated; I10 Essential (primary) hypertension; F12.10 Cannabis abuse, uncomplicated; F14.90 Cocaine use, unspecified, uncomplicated; F17.210 Nicotine dependence, cigarettes, uncomplicated; J45.909 Unspecified asthma, uncomplicated

== ENCOUNTER 2017-10-27 23:09 | Emergency (ER) | payer MEDICAID ==
[2017-10-27 23:09] VITALS: BMI 25.8
[2017-10-28 00:14] VITALS: BP 117/71; PULSE 87; RESP 16; TEMP 98.1; O2SAT 95
--- NOTE | 2017-10-28 01:20 | C.PDOC ---
History Of Present Illness 62 year old female presents to the ED requesting detox for xanax abuse. Patient was prescreened prior to coming to the ED. Patient denies SI/HI, hallucinations , other drug use. Chief Complaint (Nursing): Psychiatric Evaluation History Per: Patient History/Exam Limitations: no limitations Onset/Duration Of Symptoms: Days Current Symptoms Are (Timing): Still Present Suicide/Self Injury Attempted (Context): None Modifying Factor(s): Other Associated Symptoms: Anxiety. denies: Depression, Suicidal Thoughts, Suicidal Plan Involuntary Hold By: None Recent travel outside of the [place]: No Additional History Per: Patient Past Medical History Reviewed: Historical Data, Nursing Documentation, Vital Signs Vital Signs: Last Vital Signs Temp 98.1 F 10/28/17 00:05 Pulse 87 10/28/17 00:05 Resp 16 10/28/17 00:05 BP 117/71 10/28/17 00:05 Pulse Ox 95 10/28/17 02:12 - Medical History PMH: Anxiety, Asthma, HTN Denies: Diabetes, Hepatitis, Chronic Kidney Disease Surgical History: Tonsillectomy - [facility] DETOXIFICATION SERVICES FOR SUBSTANCE ABUSE TREATMENT (09/23/16) INDIV PSYCHOTHERAPY FOR SUBSTANCE ABUSE TREATMENT, SUPPORT (09/23/16) INDIVIDUAL PSYCHOTHERAPY, SUPPORTIVE (12/11/16) PHARMACOTHERAPY FOR SUBSTANCE ABUSE, NICOTINE REPLACE (09/23/16) Family History: States: Unknown Family Hx - Social History Hx Alcohol Use: No Hx Substance Use: Yes - Immunization History Hx Tetanus Toxoid Vaccination: No Hx Influenza Vaccination: Yes Hx Pneumococcal Vaccination: No Review Of Systems Constitutional: Negative for: Fever, Chills Cardiovascular: Negative for: Chest Pain, Palpitations Respiratory: Negative for: Cough, Shortness of Breath Gastrointestinal: Negative for: Nausea, Vomiting Skin: Negative for: Rash Psych: Positive for: Anxiety. Negative for: Depression, Suicidal ideation Physical Exam - Physical Exam Appears: Non-toxic, Other (anxious, demanding ) Skin: Normal Color, Warm, Dry Head: Atraumatic, Normacephalic Eye(s): bilateral: Normal Inspection Oral Mucosa: Moist Neck: Normal ROM, Supple Chest: Symmetrical Cardiovascular: Rhythm Regular Respiratory: Normal Breath Sounds, No Rales, No Rhonchi, No Wheezing Gastrointestinal/Abdominal: Soft, No Tenderness, No Guarding, No Rebound Extremity: Normal ROM, No Tenderness, No Swelling Neurological/Psych: Oriented x3, Normal Speech Gait: Steady ED Course And Treatment - Laboratory Results Result Diagrams: 10/28/17 01:30 10/28/17 01:30 O2 Sat by Pulse Oximetry: 95 (ON RA) Pulse Ox Interpretation: Normal Medical Decision Making Medical Decision Making: Impression: detox Plan: * Labs * UA * Crisis 02:01 - patient eloped Disposition - Disposition Disposition: ELOPEMENT - ER ONLY Disposition Time: 06:39 Condition: GOOD Forms: [facility] (Hebrew) - Clinical Impression Clinical Impression: Benzodiazepine abuse - Scribe Statement The provider has reviewed the documentation as recorded by the Scribe Josue Mitchell All medical record entries made by the Scribe were at my direction and personally dictated by me. I have reviewed the chart and agree that the record accurately reflects my personal performance of the history, physical exam, medical decision making, and the department course for this patient. I have also personally directed, reviewed, and agree with the discharge instructions and disposition.
[2017-10-28 01:35] LABS: BASO # 0.1 K/uL (0.0-0.2); BASO % 0.9 % (0.0-2.0); EOS # 0.3 K/uL (0.0-0.7); EOS % 3.2 % (0.0-4.0); HEMOGLOBIN 14.4 g/dL (11.0-16.0); LYMPH # 2.5 K/uL (1.0-4.3); LYMPH % 25.3 % (20.0-40.0); MEAN CELL VOLUME 92.7 fL (81.0-99.0); MEAN CORPUSCULAR HEMOGLOBIN 31.9 pg (27.0-31.0); MEAN CORPUSCULAR HGB CONC 34.5 g/dL (33.0-37.0); MEAN PLATELET VOLUME 7.7 fL (7.2-11.7); NEUT % 60.6 % (50.0-75.0); NRBC % 0.1 % (0.0-2.0); RBC 4.52 Mil/uL (3.80-5.20); RED CELL DISTRIBUTION WIDTH 13.7 % (11.5-14.5); WHITE BLOOD COUNT 9.9 K/uL (4.8-10.8)
[2017-10-28 01:41] LABS: SQUAMOUS EPITHIAL 3 /hpf (0-5); URINE BACTERIA OCC (<OCC); URINE BILIRUBIN NEGATIVE (NEGATIVE); URINE BLOOD 1+ (NEGATIVE); URINE CLARITY Clear (Clear); URINE COLOR Yellow (YELLOW); URINE GLUCOSE (UA) NORMAL (Normal); URINE LEUKOCYTE ESTERASE 1+ Leu/uL (Negative); URINE PROTEIN NEGATIVE (NEGATIVE); URINE UROBILINOGEN NORMAL mg/dL (0.2-1.0)
[2017-10-28 01:46] LABS: ALB/GLOB RATIO 1.3 (1.0-2.1); ALBUMIN 4.7 g/dL (3.5-5.0); ALT/SGPT 24 U/L (9-52); AST/SGOT 27 U/L (14-36); BLOOD UREA NITROGEN 14 mg/dL (7-17); CALCIUM 9.7 mg/dl (8.6-10.4); GFR AFRICAN-AMERICAN > 60; GFR NON-AFRICAN AMERICAN > 60
[2017-10-28 01:51] LABS: BARBITURATES, UR NEGATIVE (NEGATIVE); PHENCYCLIDINE, UR NEGATIVE (NEGATIVE)
[2017-10-28 01:53] LABS: BENZODIAZEPINES, UR POSITIVE (NEGATIVE); OPIATES, UR POSITIVE (NEGATIVE)
== END 2017-10-28 01:55 | disposition left against medical advice (07) ==
LOC: C.ER 23:09
DX: F13.10 Sedative, hypnotic or anxiolytic abuse, uncomplicated (principal); I10 Essential (primary) hypertension; F41.9 Anxiety disorder, unspecified; F17.210 Nicotine dependence, cigarettes, uncomplicated